=== PATIENT | male | born 1990 | race Caucasian/White ===

== ENCOUNTER 2018-12-05 22:51 | Emergency (ER) | payer MEDICAID ==
[~2018-12-05] VITALS: Ht 195.6 cm; Wt 108.9 kg
--- NOTE | 2018-12-05 23:25 | NUR ---
PT BIBS. COMP OF HAVING "CHEST PAIN FOR THE LAST 10X DAYS. GETS WORSE WHEN I TRY TO LIFT WEIGHTS". -SOB. -RADIATING. -N/V -DIZZINESS. PT AOX4. AMBULATORY W,STEADY GAIT,
[2018-12-05] MEDS ORDERED: KETOROLAC TROMETHAMINE INJ 60 MG/2 ML VIAL IM ONE (23:54)
[2018-12-06] MEDS ORDERED: KETOROLAC TROMETHAMINE INJ 60 MG/2 ML VIAL IM ONE
[2018-12-06 02:43] VITALS: BP 122/81
== END 2018-12-06 02:44 | disposition home or self-care (01) ==
LOC: ER 22:52
DX: R07.89 Other chest pain (principal); J45.909 Unspecified asthma, uncomplicated; Z87.891 Personal history of nicotine dependence
CPT/HCPCS: 71045; 93005; 96372; 99283; A4606; J1885